=== PATIENT | female | born 1990 | race American Indian/Alaskan Native ===

== ENCOUNTER 2017-12-26 18:11 | Emergency (ER) | payer MEDICAID ==
[2017-12-26 18:11] VITALS: BMI 42.0
[2017-12-26] MEDS ORDERED: Lactated Ringer's 1,000 ML IV STA (18:33)
[2017-12-26 19:05] LABS: BASO # 0.1 K/uL (0.0-0.2); BASO % 1.1 % (0.0-2.0); EOS # 0.1 K/uL (0.0-0.7); EOS % 1.2 % (0.0-4.0); HEMOGLOBIN 11.1 g/dL (12.0-16.0); LYMPH % 29.5 % (20.0-40.0); MEAN CELL VOLUME 85.8 fl (81.0-99.0); MEAN CORPUSCULAR HGB CONC 32.6 g/dL (33.0-37.0); MEAN PLATELET VOLUME 8.3 fl (7.2-11.7); MONO # 0.6 K/uL (0.0-0.8); MONO % 5.7 % (0.0-10.0); NEUT # 6.4 K/uL (1.8-7.0); NEUT % 62.5 % (50.0-75.0); RBC 3.95 Mil/uL (3.80-5.20); RED CELL DISTRIBUTION WIDTH 15.9 % (11.5-14.5); WHITE BLOOD COUNT 10.2 K/uL (4.8-10.8)
[2017-12-26 19:08] LABS: SQUAMOUS EPITHIAL 4 /hpf (0-5); URINE BACTERIA RARE (<OCC); URINE BILIRUBIN NEGATIVE (NEGATIVE); URINE BLOOD NEGATIVE (NEGATIVE); URINE CLARITY SLIGHTY-CLOUDY (Clear); URINE COLOR STRAW (YELLOW); URINE GLUCOSE (UA) NEG (Normal); URINE LEUKOCYTE ESTERASE LARGE Leu/uL (Negative); URINE PROTEIN NEGATIVE (NEGATIVE); URINE UROBILINOGEN 0.2-1.0 mg/dL (0.2-1.0)
--- NOTE | 2017-12-26 19:47 | ED PDOC ---
HPI: Female Pain Time Seen by Provider: 12/26/17 18:21 Chief Complaint (Nursing): Female Genitourinary Chief Complaint (Provider): Female Genitourinary History Per: Patient History/Exam Limitations: no limitations Onset/Duration Of Symptoms: Hrs Current Symptoms Are (Timing): Still Present Quality Of Discomfort: Sharp, Cramping Additional Complaint(s): 27 y/o female with a PMHx of , migraines and asthma presents to the ED complaining of pelvic pain. Patient reports that her LNMP was pm 11/16/2017 and when she missed her period, she took a test that resulted positive. However, patient has not yet started care. Patient reports that at approximately 1 PM today, she felt a sudden onset of sharp pelvic pain followed by one more episode of sharp pain then cramping. Patient reports pain is associated with urinary frequency. Patient additionally reports of having mild nausea intermittently and breast discomfort for the last two weeks. Denies vaginal discharge, vaginal bleeding, dysuria, hematuria and vomiting. PMD: Abnormal Vaginal Bleeding: No Last Menstral Period: 11/16/2017 : 2 Para: 1 Past Medical History Reviewed: Historical Data, Nursing Documentation, Vital Signs Vital Signs: Last Vital Signs Temp 98.1 F 12/26/17 18:18 Pulse 87 12/26/17 18:18 Resp 16 12/26/17 18:18 BP 101/63 12/26/17 18:18 Pulse Ox 96 12/26/17 18:18 - Medical History PMH: Asthma, Bronchitis, Kidney Stones, Migraine, Chronic Kidney Disease - Surgical History Surgical History: Tonsillectomy - Family History Family History: States: CAD, Diabetes, Hypertension - Social History Current smoker - smoking cessation education provided: No - Immunization History Hx Tetanus Toxoid Vaccination: No Hx Influenza Vaccination: No Hx Pneumococcal Vaccination: No - Home Medications Home Medications: Ambulatory Orders Medication Instructions Recorded SUMAtriptan [Imitrex Tab] 25 mg PO PRN PRN 08/09/17 Pantoprazole [Protonix] 40 mg PO DAILY #15 ect 08/10/17 Nitrofurantoin Macrocrystals 1 cap PO BID #14 cap 12/26/17 [Macrobid] 21/Iron Fu/Folic Acid 1 each PO DAILY #1 packet 12/26/17 [ Complete Caplet] - Allergies Allergies/Adverse Reactions: Allergies Allergy/AdvReac Type Severity Reaction Status Date / Time amoxicillin trihydrate Allergy SWELLING Verified 08/10/17 03:25 [From Augmentin] mushroom Allergy SWELLING Verified 08/10/17 03:25 potassium clavulanate Allergy SWELLING Verified 08/10/17 03:25 [From Augmentin] Review of Systems ROS Statement: Except As Marked, All Systems Reviewed And Found Negative Cardiovascular: Positive for: Other (Breast Discomfort) Gastrointestinal: Positive for: Nausea. Negative for: Vomiting Genitourinary Female: Positive for: Frequency, Pelvic Pain. Negative for: Dysuria, Hematuria, Vaginal Discharge, Vaginal Bleeding Physical Exam - Reviewed Nursing Documentation Reviewed: Yes Vital Signs Reviewed: Yes - Physical Exam Appears: Positive for: Non-toxic, No Acute Distress Head Exam: Positive for: ATRAUMATIC, NORMOCEPHALIC Skin: Positive for: Warm, Dry Eye Exam: Positive for: EOMI, PERRL ENT: Negative for: Pharyngeal Erythema, Tonsillar Exudate Neck: Positive for: Painless ROM, Supple Cardiovascular/Chest: Positive for: Regular Rate, Rhythm. Negative for: Murmur Respiratory: Positive for: Normal Breath Sounds. Negative for: Wheezing Gastrointestinal/Abdominal: Positive for: Tenderness (to deep palpation of the suprapubic area (left > right)). Negative for: Mass, Guarding, Rebound Back: Positive for: Normal Inspection. Negative for: Decreased ROM Extremity: Positive for: Normal ROM. Negative for: Deformity Lymphatic: Negative for: Adenopathy Neurologic/Psych: Positive for: Alert. Negative for: Motor/Sensory Deficits - Laboratory Results Result Diagrams: 12/26/17 18:45 - ECG O2 Sat by Pulse Oximetry: 96 (RA) Pulse Ox Interpretation: Normal Medical Decision Making Medical Decision Making: Time: 1853 Impression: Pelvic pain and early Differentials include but not limited to UTI, dehydration, ectopic and round ligament pain Plan: -- Beta-HCG, Quantitative -- ED Urine -- ED Urine Dipstick -- CBC with differentials -- Chlamydia/GC RNA, TNA -- Lactated Ringer's IV 1000 mls/hr -- Urine Culture -- IV Insertion -- Urinalysis -- US OB Transvaginal Time: 2144 US RESULTS FINDINGS: Gestation: Gestational sac and yolk sac in the endometrial canal consistent with a 5 week 1 day gestation. A pole is not yet seen. Placenta/amniotic fluid: Cannot be adequately evaluated due to the early gestational age. Uterus/cervix: Unremarkable. No myometrial mass. Ovaries: 1.4 cm corpus luteum cyst right ovary. Ovaries are unremarkable. No mass. Free fluid: No free fluid. IMPRESSION: Gestational sac and yolk sac in the endometrial canal consistent with a 5 week 1 day gestation. A pole is not yet seen. Ultrasound followup to document viability could be performed if indicated. Thank you for allowing us to participate in the care of your patient. Dictated and Authenticated by: Donis Jacinto MD 12/26/2017 9:45 PM Eastern Time ([place] & [place]) DW pt findings and plan of care. 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 Scribe Attestation: Documented by Phillip Juarez acting as a scribe for Yady García MD. Provider Scribe Attestation: All medical record entries made by the Scribe were at my direction and personally dictated by me. I have reviewed the chart and agree that the record accurately reflects my personal performance of the history, physical exam, medical decision making, and the department course for this patient. I have also personally directed, reviewed, and agree with the discharge instructions and disposition. 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
[2017-12-26 22:31] VITALS: BP 102/74; PULSE 72; RESP 14; TEMP 98.6; O2SAT 96
--- NOTE | 2017-12-27 11:43 | US ---
Date of service: 12/26/2017 PROCEDURE: OB Pelvic Ultrasound HISTORY: early preg pelvci pain r/o ectopic COMPARISON: None available. TECHNIQUE: Transvaginal pelvic ultrasound was performed. FINDINGS: UTERUS: Single intrauterine gestation. Gestational sac diameter measures 1.1 cm equivalent to 5 weeks and 1 day of gestational age. Yolk sac is visualized. pole is not identified on the current examination. age (Ultrasound estimated): 5 weeks and 1 day Date of delivery (Ultrasound estimated) : 08/27/2018 Ana María-gestational hemorrhage: None. CERVIX: Long and closed. No cervical abnormality seen. FREE FLUID: Trace free fluid in the pelvis. OTHER FINDINGS: None. RIGHT OVARY: Measures 2.6 x 2.6 x 2.9 cm. No solid mass. Normal flow. There is a 1.4 x 1.2 x 1.3 cm corpus luteum cyst. LEFT OVARY: Measures 2.3 x 1.1 x 2.6 cm. No solid mass. Normal flow. IMPRESSION: Single intrauterine gestational sac with mean gestational age of 5 weeks and 1 day. The estimated date of delivery by ultrasound is 08/27/2018. Clinical follow-up and follow-up ultrasound is recommended to confirm viability.
== END 2017-12-26 22:53 | disposition home or self-care (01) ==
LOC: H.ER 18:11
DX: O23.41 Unspecified infection of urinary tract in pregnancy, first trimester (principal); O34.81 Maternal care for other abnormalities of pelvic organs, first trimester; Z3A.01 Less than 8 weeks gestation of pregnancy; Z87.442 Personal history of urinary calculi; Z82.49 Family history of ischemic heart disease and other diseases of the circulatory system; J45.909 Unspecified asthma, uncomplicated; Z88.0 Allergy status to penicillin
CPT/HCPCS: 76817; 81003; 81025; 84702; 85025; 87086; 87491; 87591; 99284; J7120